=== PATIENT | female | born 1980 | race Caucasian/White ===

== ENCOUNTER → 2018-10-12 09:50 | Outpatient (CLI) | payer BC, SELFPAY ==
[2018-05-03 09:38] VITALS: BMI 37.8
[2018-10-12 12:39] LABS: Cholesterol 204 mg/dL (200); Glucose 101 mg/dL (74-106); High Density Lipoprotein 41 mg/dL; Triglycerides 207 mg/dL; Very Low Density Lipoprotein 41 mg/dL (5-40)
== END ==
PROVIDERS: Family Provider Family Medicine; PCP Family Medicine; Referring Provider Family Medicine; Visit Provider Family Medicine
DX: Z13.1 Encounter for screening for diabetes mellitus (principal); Z13.220 Encounter for screening for lipoid disorders
CPT/HCPCS: 36415; 80061; 82947

== ENCOUNTER → 2020-07-07 12:38 | Outpatient (CLI) | payer BC, SELFPAY ==
[2018-05-03 09:38] VITALS: BMI 37.8
--- NOTE | 2020-07-07 12:42 | BI_ITS ---
MAMMOGRAPHY - BILATERAL SCREENING REASON FOR EXAM: Female, 40 years old. Routine annual screening examination. PERTINENT HISTORY: Grandmother with breast cancer. Aunt with breast cancer. TECHNIQUE: Digital bilateral breast janeen (3D mammographic acquisition) in the CC and MLO projections. 2-D mediolateral oblique (MLO) and craniocaudad (CC) views of both breasts were obtained. CAD: Full Field Digital Mammography with Computer Added Detection was performed. COMPARISON: Comparison is made with prior study dated 10/05/2011. FINDINGS: Breast Composition: There are scattered areas of fibroglandular density. There are no dominant masses or suspicious calcifications. Stable benign-appearing bilateral axillary lymph nodes. No other significant abnormalities are identified. There has been no significant change since the prior study. BI/SCRN MAMM (CAD)W/JANEEN BILAT IMPRESSION: Stable bilateral screening mammogram. Yearly follow-up mammogram recommended. (A) ASSESSMENT CATEGORY: BIRADS Category 2: Benign. A letter regarding these results will be sent to the patient by the facility within 30 days. Approximately 10% of breast cancers are not detected by mammography. A normal mammogram should not delay biopsy of a clinically suspicious abnormality. [id number] Electronically Signed: Alvaro Lee MD at 13:42 EDT , Service support ,
== END ==
PROVIDERS: PCP Family Medicine; Referring Provider Family Medicine; Visit Provider Family Medicine
DX: Z12.31 Encounter for screening mammogram for malignant neoplasm of breast (principal)
CPT/HCPCS: 77063; 77067

== ENCOUNTER → 2021-08-26 | Outpatient (CLI) | payer BC, SELFPAY ==
--- NOTE | 2021-08-26 12:39 | BI_ITS ---
MAMMOGRAPHY - BILATERAL SCREENING REASON FOR EXAM: Female, 41 years old. Routine annual screening examination. PERTINENT HISTORY: Mother with breast cancer. TECHNIQUE: Digital bilateral breast janeen (3D mammographic acquisition) in the CC and MLO projections. 2-D mediolateral oblique (MLO) and craniocaudad (CC) views of both breasts were obtained. CAD: Full Field Digital Mammography with Computer Added Detection was performed. COMPARISON: Comparison is made with prior study dated 07/07/2020 and 04/06/2011. FINDINGS: Breast Composition: There are scattered areas of fibroglandular density. There are no dominant masses or suspicious calcifications. Stable small benign-appearing bilateral axillary lymph nodes. No other significant abnormalities are identified. There has been no significant change since the prior study. BI/SCRN MAMM (CAD)W/JANEEN BILAT IMPRESSION: Stable bilateral screening mammogram. Yearly follow-up mammogram recommended. (A) ASSESSMENT CATEGORY: BIRADS Category 2: Benign. A letter regarding these results will be sent to the patient by the facility within 30 days. Approximately 10% of breast cancers are not detected by mammography. A normal mammogram should not delay biopsy of a clinically suspicious abnormality. [id number] Electronically Signed: Alvaro Lee MD at 13:26 EDT ,
== END | disposition home or self-care (01) ==
LOC: OPBI 12:36
PROVIDERS: PCP Family Medicine; Referring Provider Family Medicine; Visit Provider Family Medicine
DX: Z12.31 Encounter for screening mammogram for malignant neoplasm of breast (principal); Z80.3 Family history of malignant neoplasm of breast
CPT/HCPCS: 77063; 77067

== ENCOUNTER → 2021-09-24 | Outpatient (CLI) | payer BC, SELFPAY ==
[2021-09-24 10:25] LABS: Cholesterol 213 mg/dL (200); Glucose 190 mg/dL (74-106); High Density Lipoprotein 40 mg/dL; Triglycerides 238 mg/dL; Very Low Density Lipoprotein 48 mg/dL (5-40)
== END | disposition home or self-care (01) ==
LOC: MTLAB 07:21
PROVIDERS: PCP Family Medicine; Referring Provider Family Medicine; Visit Provider Family Medicine
DX: Z00.00 Encounter for general adult medical examination without abnormal findings (principal); E66.01 Morbid (severe) obesity due to excess calories
CPT/HCPCS: 36415; 80061; 82947

== ENCOUNTER → 2022-07-14 | Outpatient (CLI) | payer BC, SELFPAY ==
[2022-07-14 11:12] LABS: ALB/GLOB Ratio 1.1 RATIO (0.9-2.4); AST(SGOT) 29 U/L (15-37); Alanine Aminotransfer ALT/SGPT 60 U/L (13-56); Albumin, Serum 3.6 g/dL (3.2-5.0); Alkaline Phosphatase 120 U/L (45-117); Anion Gap 4 (5-15); BUN 13 mg/dL (7-18); BUN/Creat Ratio 15.8 RATIO (10-20); Calcium,Total 9.2 mg/dL (8.5-10.1); Chloride 107 mmol/L (98-107); Cholesterol 120 mg/dL (200); Creatinine, Serum 0.82 mg/dL (0.55-1.02); EST Glomerular Filtration Rate 81 mL/min (>60); Est Glom Filt Rate - Afr Amer 98 mL/min (>60); Globulin 3.3 g/dL (2.2-4.2); Glucose 128 mg/dL (74-106); High Density Lipoprotein 39 mg/dL; Potassium 4.1 mmol/L (3.5-5.1); Protein, Total 6.9 g/dL (6.4-8.2); Sodium Level 139 mmol/L (136-145); Triglycerides 132 mg/dL; Very Low Density Lipoprotein 26 mg/dL (5-40)
[2022-07-14 11:28] LABS: Microalbumin,Random Urine 9.5 mg/L (NO RANGE EST.); Microalbumin:Creatinine Ratio 4.5 mg/g CRE (<30 mg/g CRE)
== END | disposition home or self-care (01) ==
LOC: MTLAB 08:56
PROVIDERS: PCP Family Medicine; Referring Provider Nurse Practitioner Family; Visit Provider Nurse Practitioner Family
DX: E11.9 Type 2 diabetes mellitus without complications (principal); E78.00 Pure hypercholesterolemia, unspecified
CPT/HCPCS: 36415; 80053; 80061; 82043; 82570; 84443

== ENCOUNTER → 2022-12-15 | Outpatient (CLI) | payer BC, SELFPAY ==
--- NOTE | 2022-12-15 08:10 | BI_ITS ---
MAMMOGRAPHY - BILATERAL SCREENING REASON FOR EXAM: Female, 42 years old. Routine annual screening examination. PERTINENT HISTORY: Mother with breast cancer. Grandmother with breast cancer. Aunt with breast cancer. TECHNIQUE: Digital bilateral breast janeen (3D mammographic acquisition) in the CC and MLO projections. 2-D mediolateral oblique (MLO) and craniocaudad (CC) views of both breasts were obtained. CAD: Full Field Digital Mammography with Computer Added Detection was performed. COMPARISON: Comparison is made with prior study dated August 26, 2021 and July 07, 2020. FINDINGS: Breast Composition: There are scattered areas of fibroglandular density. There are no dominant masses or suspicious calcifications. Stable benign-appearing bilateral axillary lymph nodes. No other significant abnormalities are identified. There has been no significant change since the prior study. BI/SCRN MAMM (CAD)W/JANEEN BILAT IMPRESSION: Stable bilateral screening mammogram. Yearly follow-up mammogram recommended. (A) ASSESSMENT CATEGORY: BIRADS Category 2: Benign. A letter regarding these results will be sent to the patient by the facility within 30 days. Approximately 10% of breast cancers are not detected by mammography. A normal mammogram should not delay biopsy of a clinically suspicious abnormality. [id number] Electronically Signed: Alvaro Lee MD at 9:53 EDT ,
== END | disposition home or self-care (01) ==
LOC: OPBI 08:08
PROVIDERS: PCP Family Medicine; Referring Provider Nurse Practitioner Family; Visit Provider Nurse Practitioner Family
DX: Z12.31 Encounter for screening mammogram for malignant neoplasm of breast (principal); Z80.3 Family history of malignant neoplasm of breast
CPT/HCPCS: 77063; 77067

== ENCOUNTER → 2023-08-03 | Outpatient (CLI) | payer BC, SELFPAY ==
[2023-08-03 10:32] LABS: Microalbumin,Random Urine 9.8 mg/L (NO RANGE EST.); Microalbumin:Creatinine Ratio 6.5 mg/g CRE (<30 mg/g CRE)
[2023-08-03 10:46] LABS: Vitamin D,25 Hydroxy 67.7 ng/mL
[2023-08-03 10:50] LABS: ALB/GLOB Ratio 1.1 RATIO (0.9-2.4); AST(SGOT) 37 U/L (15-37); Alanine Aminotransfer ALT/SGPT 64 U/L (13-56); Albumin, Serum 3.7 g/dL (3.2-5.0); Alkaline Phosphatase 106 U/L (45-117); Anion Gap 5 (5-15); BUN 15 mg/dL (7-18); BUN/Creat Ratio 18.1 RATIO (10-20); Calcium,Total 9.2 mg/dL (8.5-10.1); Chloride 106 mmol/L (98-107); Cholesterol 154 mg/dL (200); Creatinine, Serum 0.83 mg/dL (0.55-1.02); EST Glomerular Filtration Rate 80 mL/min (>60); Est Glom Filt Rate - Afr Amer 97 mL/min (>60); Globulin 3.3 g/dL (2.2-4.2); Glucose 114 mg/dL (74-106); High Density Lipoprotein 48 mg/dL; Potassium 4.1 mmol/L (3.5-5.1); Sodium Level 139 mmol/L (136-145); Thyroid Stim Hormone (TSH) 2.44 uIU/mL (0.358-3.74); Triglycerides 155 mg/dL; Very Low Density Lipoprotein 31 mg/dL (5-40)
== END | disposition home or self-care (01) ==
PROVIDERS: PCP Family Medicine; Referring Provider Nurse Practitioner Family; Visit Provider Nurse Practitioner Family
DX: E11.9 Type 2 diabetes mellitus without complications (principal); E78.00 Pure hypercholesterolemia, unspecified; E66.9 Obesity, unspecified
CPT/HCPCS: 36415; 80053; 80061; 82043; 82306; 82570; 84443

== ENCOUNTER → 2024-01-09 | Outpatient (CLI) | payer BC, SELFPAY ==
--- NOTE | 2024-01-09 12:16 | BI_ITS ---
MAMMOGRAPHY - BILATERAL SCREENING REASON FOR EXAM: Female, 43 years old. Routine annual screening examination. PERTINENT HISTORY: Mother with breast cancer. Grandmother with breast cancer. Aunt with breast cancer. TECHNIQUE: Digital bilateral breast janeen (3D mammographic acquisition) in the CC and MLO projections. 2-D mediolateral oblique (MLO) and craniocaudad (CC) views of both breasts were obtained. CAD: Full Field Digital Mammography with Computer Added Detection was performed. COMPARISON: Comparison is made with prior study December 15, 2022 and August 26, 2021. FINDINGS: Breast Composition: There are scattered areas of fibroglandular density. There are no dominant masses or suspicious calcifications. Stable small bilateral benign-appearing axillary lymph nodes. No other significant abnormalities are identified. There has been no significant change since the prior study. BI/SCRN MAMM (CAD)W/JANEEN BILAT IMPRESSION: Stable bilateral screening mammogram. Yearly follow-up mammogram recommended. (A) ASSESSMENT CATEGORY: BIRADS Category 2: Benign. A letter regarding these results will be sent to the patient by the facility within 30 days. Approximately 10% of breast cancers are not detected by mammography. A normal mammogram should not delay biopsy of a clinically suspicious abnormality. [id number] Electronically Signed: Alvaro Lee MD at 13:16 EDT ,
--- OUTSIDE RECORDS SUMMARY | 2024-01-09 12:33 | XMS RPT_ITS | CCD ---
Author Organization [facility] Care Team Providers Care Addiction Social Worker Name Role Phone CAMILO LUNA Unavailable Unavailable TIMMY ZARAGOZA Unavailable Unavailable Allergies Allergy Classification Reported Allergen(s) Allergy Type Date of Onset Reaction(s) Facility (1 source) clarithromycin; Translations: [CLARITHROMYCIN] Drug Allergy 6 [facility] Repository (1 source) codeine; Translations: [CODEINE] Drug Allergy 6 [facility] Repository (1 source) AMOXICILLIN-POT CLAVULANATE; Translations: [AMOXICILLIN-POT CLAVULANATE] Propensity to adverse reactions to drug (disorder) 6 [facility] Repository Results Test Name Value Interpretation Reference Range Facility [facility] 11-15-2016 PROGRESS HNO ID: [id number] thor: Camilo Martell: (none)Author Type: PhysicianType: Progress NotesFiled: 11/15/2016 12:46 PMNote Text:Consult requested by Dr. Zaragoza for my opinion regarding hormonereplacement therapy in a patient with a history of heterozygous mutationfor prothrombin. The impression and plan will be communicated by sendingthis full consult note to Dr. 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 Her high risk director instructional material hadordered several labs associated with recurrent loss one of whichshe was found to be heterozygous mutation for prothrombin gene mutation.The patient since last seen underwent surgery for right oophorectomy andthen several weeks ago had emergency surgery for torsion of the leftovary. She underwent hysterectomy and oophorectomy.She's been experiencing hot flashes and also mood swings and Dr. Zaragoza hasdiscussed with her the possibility of HRT.She has no lower extremity swelling or discomfort. She had no difficultywith venous thrombi levels on following the 2 surgeries mentioned above.She has no complaints.PMH, medications and allergies personally reviewed by me today. Anychanges documented in appropriate section. Social history and familyhistory reviewed and updated as appropriate.ROS:Constituti onal: Denies episodes of fever and night sweats. Notsignificantly fatigued. Normal appetite.Neuro: Denies FAY, vertigo, dizziness and imbalance. Denies symptoms ofneuropathy.HEENT: No recent change in voice, vision or hearing.Resp: Denies cough, wheeze and hemoptysis. Denies shortness of breath atrest. Denies ESQUIVEL.CVS: Denies exertional chest pain, PND, orthopnea and LE edema.GI: Denies dysgeusia. Denies symptoms of stomatitis. Denies dysphagia andodynophagia. Denies reflux, n/v, change in bowel habits and abdominalpain.: Denies dysuria or gross hematuria. No symptoms of bladder outletobstruction.Endo: Denies polyuria and polydipsia. Denies heat and cold intolerance.Musculoskeleta l: Denies bone, back, joint and muscular pain.Derm: Denies rash. Denies jaundice and diffuse pruritis.Heme: Denies unusual bleeding and unexplained bruising.Psych: Normal mood.PHYSICAL EXAM:Vitals: Blood pressure 133/84, pulse 69, temperature 36.7 ?C (98.1 ?F),temperature source Oral, height 160.5 cm (5' 3.19 ), weight 93.9 kg (207lb).Well-appearing and in no acute distress.EYES: Sclerae are anicteric bilaterally.NECK: Supple. No enlargement of thyroid.LYMPHATIC: There is no palpable cervical, supraclavicular, axillary oringuinal adenopathy.RESPIRATORY: Inspiratory breath sounds are of normal intensity in allfields. No rales, wheezes or rhonchi. Expiratory phase is normal.CARDIOVASCULAR: Rhythm is regular. Normal intensity S1/S2. There is nogallop or murmur.ABDOMEN: The abdomen is nondistended. No organomegaly. No tenderness.Extremities: No swelling or edema.SKIN: No jaundice or rash. No petechiae.NEUROLOGIC: ramp service agent II-XII are grossly intact. No focal motor weakness.MUSCULOSKELETAL: No muscle wasting.ASSESSMENT/PLAN:(D 68.52) Prothrombin gene mutation (HCC) (primary encounter diagnosis)Assessment/Plan: -I reviewed with the patient currently literature regarding the use ofhormone replacement therapy in the setting of heterozygous prothrombingene mutation. I supplied her with an article published in circulationsuggesting that there is about a 3-4 fold increased risk in venousthromboembolism in women with prothrombin gene mutation who go on hormonereplacement therapy. However her condition is not a absolutecontraindication. She doesn't have a history of previous venousthromboembolism. Also the other issues I saw her for 11 years ago have todo with loss and are not in and of themselves an increased riskof thrombosis. She is going to take this under advisement and discuss withDr. Zaragoza the length of time she would need to be on hormone replacementtherapy and then consider the options based on the severity of hersymptoms. She will contact me with any questions that she may have.Camilo Luna DO Normal [facility] CNOV[facility]on 11-11-2016 [facility] Visit (SP) Office (HEMAWS) RACHAEL SALVADOR ([id number]) 1980 [facility] Time Provider Department11/11/16 10:10 AM CAMILO LUNA During your visit today, we recorded the following information about you: Temperature Pulse Blood pressure Weight 98.1 degrees 69/minute 133/84 93.9 kg Height 1.605 mPaul Norman Luna DO 11/15/2016 12:46 PM SignedConsult requested by Dr. Zaragoza for my opinion regarding hormone replacementtherapy in a patient with a history of heterozygous mutation for prothrombin.The impression and plan will be communicated by sending this full consult noteto Dr. Zaragoza under separate cover letter.HPI: The patient is a 36-year-old female whom I saw in consultation 11 yearsago for recurrent loss. Her high risk director instructional material had orderedseveral labs associated with recurrent loss one of which she wasfound to be heterozygous mutation for prothrombin gene mutation.The patient since last seen underwent surgery for right oophorectomy and thenseveral weeks ago had emergency surgery for torsion of the left ovary. Sheunderwent hysterectomy and oophorectomy.She's been experiencing hot flashes and also mood swings and Dr. Zaragoza hasdiscussed with her the possibility of HRT.She has no lower extremity swelling or discomfort. She had no difficulty withvenous thrombi levels on following the 2 surgeries mentioned above.She has no complaints.PMH, medications and allergies personally reviewed by me today. Any changesdocumented in appropriate section. Social history and family history reviewedand updated as appropriate.ROS:Constituti onal: Denies episodes of fever and night sweats. Not significantlyfatigued. Normal appetite.Neuro: Denies FAY, vertigo, dizziness and imbalance. Denies symptoms ofneuropathy.HEENT: No recent change in voice, vision or hearing.Resp: Denies cough, wheeze and hemoptysis. Denies shortness of breath at rest.Denies ESQUIVEL.CVS: Denies exertional chest pain, PND, orthopnea and LE edema.GI: Denies dysgeusia. Denies symptoms of stomatitis. Denies dysphagia andodynophagia. Denies reflux, n/v, change in bowel habits and abdominal pain.: Denies dysuria or gross hematuria. No symptoms of bladder outletobstruction.Endo: Denies polyuria and polydipsia. Denies heat and cold intolerance.Musculoskeleta l: Denies bone, back, joint and muscular pain.Derm: Denies rash. Denies jaundice and diffuse pruritis.Heme: Denies unusual bleeding and unexplained bruising.Psych: Normal mood.PHYSICAL EXAM:Vitals: Blood pressure 133/84, pulse 69, temperature 36.7 ?C (98.1 ?F),temperature source Oral, height 160.5 cm (5' 3.19ANDquot;), weight 93.9 kg (207lb).Well-appearing and in no acute distress.EYES: Sclerae are anicteric bilaterally.NECK: Supple. No enlargement of thyroid.LYMPHATIC: There is no palpable cervical, supraclavicular, axillary or inguinaladenopathy.RESPIRA TORY: Inspiratory breath sounds are of normal intensity in all law.No rales, wheezes or rhonchi. Expiratory phase is normal.CARDIOVASCULAR: Rhythm is regular. Normal intensity S1/S2. There is no gallopor murmur.ABDOMEN: The abdomen is nondistended. No organomegaly. No tenderness.Extremities: No swelling or edema.SKIN: No jaundice or rash. No petechiae.NEUROLOGIC: ramp service agent II-XII are grossly intact. No focal motor weakness.MUSCULOSKELETAL: No muscle wasting.ASSESSMENT/PLAN:(D 68.52) Prothrombin gene mutation (HCC) (primary encounter diagnosis)Assessment/Plan: -I reviewed with the patient currently literature regarding the use of hormonereplacement therapy in the setting of heterozygous prothrombin gene mutation. Isupplied her with an article published in circulation suggesting that there isabout a 3-4 fold increased risk in venous thromboembolism in women withprothrombin gene mutation who go on hormone replacement therapy. However hercondition is not a absolute contraindication. She doesn't have a history ofprevious venous thromboembolism. Also the other issues I saw her for 11 yearsago have to do with loss and are not in and of themselves anincreased risk of thrombosis. She is going to take this under advisement anddiscuss with Dr. Zaragoza the length of time she would need to be on hormonereplacement therapy and then consider the options based on the severity of hersymptoms. She will contact me with any questions that she may have.Yuni Encarnacion Provider: TIMMY ZARAGOZA [[id number]]Allergies As of Date: 11/11/2016 Noted Allergy ReactionAUGMENTIN (AMOXICILLIN-POT CLAVUL*01/24/2006 8 - GI UpsetBIAXIN (CLARITHROMYCIN) 01/24/2006 8 - GI UpsetCODEINE 01/21/2006 1 - Mental Status Change Comments: brianne Date Reviewed: 11/11/2016Reviewed by: Camilo Luna - Fully AssessedReason for Visit: New Patient [[id number]]Primary Visit Diagnosis:Prothrombin gene mutation (HCC) [D68.52]Follow-up and Disposition History RecordedPrescriptions as of 11/11/2016 Sig: MOMETASONE 50 MCG/ACTUATION N* Use 2 Sprays in the nose once* MULTIVITAMIN CAPSULE Take 1 capsule by mouth once * PAROXETINE 10 MG TABLET Take 10 mg by mouth once noelle* CETIRIZINE 10 MG CAPSULE Take 10 mg by mouth once noelle* CHOLECALCIFEROL (VITAMIN D3) * Take 5,000 Units by mouth onc* ASPIRIN 81 MG TABLET Take one(1) tablet daily.Medication notes this encounter FLONASE 50 MCG/ACTUATION NASAL SPRAY,SUSPENSION >> Rosy Brennan RN, RN 11/11/2016 10:18 AM >> ROSY BRENNAN RN [facility] Nov 11, 2016 10:18 AM stopped FOLIC ACID-VIT B6-VIT B12 2.5 MG-25 MG-1 MG TABLET >> Rosy Brennan RN, RN 11/11/2016 10:18 AM >> ROSY BRENNAN RN [facility] Nov 11, 2016 10:18 AM stopped MULTIVITAMIN WITH IRON 27 MG IRON-0.8 MG TABLET >> Rosy Brennan RN, RN 11/11/2016 10:18 AM >> ROSY BRENNAN RN [facility] Nov 11, 2016 10:18 AM stopped changed to regular multivitaminProblem List As Of Date 11/11/2016 Noted Resolved COAGULAT DEFECT NEC/NOS [D68.9] INVALID FOR*Encounter Status:Closed by CAMILO LUNA DO on 11/15/16 Normal [facility] Encounters Encounter Date Encounter Type Care Provider Facility Start: 11-11-2016 End: 11-15-2016 Ambulatory CAMILO LUNA [facility] Summary Purpose Family History No Family History Records Found Advance Directives No Advanced Directives Records Found Additional Source Comments INFORMATION SOURCE (unrecogn ized section and content) DATE CREATED AUTHOR 09/14/2017 [facility] FOR RECORDS PERTAINING TO PATIENTS WHO ARE OR HAVE BEEN ENROLLED IN A CHEMICAL DEPENDENCY/SUBSTANCEABUSE PROGRAM, SOME INFORMATION MAY BE OMITTED. This clinical summary was aggregated from multiple sources. Caution should be exercised in using it in the provision of clinical care. This summary normalizes information from multiple sources, and as a consequence, information in this document may materially change the coding, format and clinical context of patient data. In addition, data may be omitted in some cases. CLINICAL DECISIONS SHOULD BE BASED ON THE PRIMARY CLINICAL RECORDS. [facility] [employer] provides no warranty or guarantee of the accuracy or completeness of information in this document.
== END | disposition home or self-care (01) ==
LOC: OPBI 12:15
PROVIDERS: PCP Family Medicine; Referring Provider Family Medicine; Visit Provider Family Medicine
DX: Z12.31 Encounter for screening mammogram for malignant neoplasm of breast (principal); Z80.3 Family history of malignant neoplasm of breast
CPT/HCPCS: 77063; 77067

== ENCOUNTER → 2024-08-28 | Outpatient (CLI) | payer BC, SELFPAY | END | disposition home or self-care (01) | LOC: SL 10:26 | PROVIDERS: PCP Family Medicine; Referring Provider Family Medicine; Visit Provider Family Medicine | DX: G47.33 Obstructive sleep apnea (adult) (pediatric) (principal) | CPT/HCPCS: 95806 ==

== ENCOUNTER → 2024-09-27 | Outpatient (CLI) | payer BC, SELFPAY | END | disposition home or self-care (01) | LOC: SL 17:30 | PROVIDERS: PCP Family Medicine; Referring Provider Family Medicine; Visit Provider Family Medicine | DX: Z00.00 Encounter for general adult medical examination without abnormal findings (principal) ==

== ENCOUNTER → 2024-10-04 | Outpatient (CLI) | payer BC, SELFPAY ==
[2024-10-04 11:34] LABS: Creatinine, Urine (random) 71.10 mg/dL (28.00-217.00); Microalbumin,Random Urine < 12.0 mg/L (<20 mg/L)
[2024-10-04 12:03] LABS: AST(SGOT) 34 U/L (<=31); Alanine Aminotransfer ALT/SGPT 49 U/L (<=34); Albumin, Serum 4.1 g/dL (3.5-5.0); Alkaline Phosphatase 118 U/L (35-104); Anion Gap 12 (5-15); BUN 14 mg/dL (4-19); BUN/Creat Ratio 17.7 RATIO (10-20); Calcium,Total 9.2 mg/dL (7.6-11.0); Carbon Dioxide 25.0 mmol/L (21.0-32.0); Chloride 104 mmol/L (98-108); Cholesterol 134 mg/dL (<=200); Globulin 2.4 g/dL (2.2-4.2); Glucose 98 mg/dL (70-99); Low Density Lipoprotein Calc. 56 mg/dL; Potassium 4.1 mmol/L (3.3-5.1); Triglycerides 159 mg/dL; Very Low Density Lipoprotein 32 mg/dL (5-40); Vitamin D,25 Hydroxy 60.4 ng/mL (30-100); cholesterol:hdl ratio screen 2.93
== END | disposition home or self-care (01) ==
LOC: LAB 10:00
PROVIDERS: PCP Family Medicine; Referring Provider Nurse Practitioner Family; Visit Provider Nurse Practitioner Family
DX: E11.65 Type 2 diabetes mellitus with hyperglycemia (principal)
CPT/HCPCS: 36415; 80053; 80061; 82043; 82306; 82570; 84443

== ENCOUNTER → 2025-01-21 | Outpatient (CLI) | payer BC, SELFPAY ==
--- NOTE | 2025-01-21 14:44 | BI_ITS ---
EXAM: BI/SCRN MAMM (CAD)W/JANEEN BILAT
== END | disposition home or self-care (01) ==
LOC: OPBI 14:43
PROVIDERS: PCP Family Medicine; Referring Provider Family Medicine; Visit Provider Family Medicine
DX: Z12.31 Encounter for screening mammogram for malignant neoplasm of breast (principal)
CPT/HCPCS: 77063; 77067